=== PATIENT | female | born 1990 | race Caucasian/White ===

== ENCOUNTER 2022-03-23 10:37 | Emergency (ER) | payer SELFPAY ==
[2022-03-23 11:07] VITALS: BP 107/63; PULSE 70; RESP 15; TEMP 98; BMI 23.1
[2022-03-23 13:55] LABS: EPI CELLS >36 /uL (0-25.1); HYALINE CASTS 3 /uL (0-3.1); PH,URINE 5.5 (5.0-8.0); URINE APPEARANCE CLOUDY; URINE BACTERIA 6426 /uL (0-1359); URINE BILIRUBIN NEGATIVE (NEGATIVE); URINE COLOR DK YELLOW; URINE GLUCOSE (UA) NEGATIVE (NEGATIVE); URINE KETONE 2+ (NEGATIVE); URINE LEUK ESTERASE TRACE (NEGATIVE); URINE NITRITE NEGATIVE (NEGATIVE); URINE PROTEIN 1+ (NEGATIVE); URINE RBC 22 /uL (0-23.9); URINE UROBILINOGEN 0.2 mg/dL (0.2-1.0); URINE WBC 67 /uL (0-25.8)
== END 2022-03-23 16:41 | disposition home or self-care (01) ==
LOC: JERFT 10:37
DX: R09.89 Other specified symptoms and signs involving the circulatory and respiratory systems (principal); N39.0 Urinary tract infection, site not specified
CPT/HCPCS: 71046-TC-FY; 71250-TC; 81003; 84703; 99285-25